=== PATIENT | female | born 1980 | race Caucasian/White ===

== ENCOUNTER 2018-01-02 11:03 | Emergency (ER) | payer SELFPAY ==
[2018-01-02] MEDS ORDERED: KETOROLAC TROMETHAMINE 60 MG/2 ML SDV IM ONE (11:47)
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
[2018-01-02 12:55] VITALS: BP 126/88
== END 2018-01-02 12:51 | disposition home or self-care (01) ==
LOC: ER 11:03
DX: S73.101A Unspecified sprain of right hip, initial encounter (principal); M25.551 Pain in right hip; M53.3 Sacrococcygeal disorders, not elsewhere classified; Y09 Assault by unspecified means; R20.0 Anesthesia of skin; R20.2 Paresthesia of skin; F17.200 Nicotine dependence, unspecified, uncomplicated; Z88.0 Allergy status to penicillin; Z88.1 Allergy status to other antibiotic agents; Z88.8 Allergy status to other drugs, medicaments and biological substances
CPT/HCPCS: 99284; 96372; 72220; 73502; J1885